=== PATIENT | male | born 1990 | race Caucasian/White ===

== ENCOUNTER 2016-05-05 19:01 | Emergency (ER) | payer OTHER ==
[~2016-05-05] VITALS: Ht 177.8 cm; Wt 73.3 kg
[~2016-05-05 19:01] MED LIST: AUGMENTIN875 MG PO; Keflex PO; TORADOL10 MG PO; Vibramycin, Doryx PO
[2016-05-05] MEDS ORDERED: MOTRIN600 MG PO (20:52)
[2016-05-05] MEDS ORDERED: BACTRIM,SEPT1 TABLET PO (20:52)
[2016-05-05 22:22] VITALS: BP 129/83
== END 2016-05-05 22:24 | disposition home or self-care (01) ==
LOC: EME 19:01
PROC: 0H94X0Z Drainage of Neck Skin with Drainage Device, External Approach (ICD-10-PCS; principal; 2016-05-05)
DX: L02.11 Cutaneous abscess of neck (principal); F17.200 Nicotine dependence, unspecified, uncomplicated
CPT/HCPCS: 99281; 99284; J2250; J3010